=== PATIENT | male | born 1980 | race Caucasian/White ===

== ENCOUNTER → 2017-06-11 | Emergency (ER) | payer OTHER ==
[~2017-06-11] VITALS: Ht 167.6 cm; Wt 85.3 kg
== END | disposition home or self-care (01) ==
LOC: ER 09:11
DX: S91.321A Laceration with foreign body, right foot, initial encounter (principal); W10.8XXA Fall (on) (from) other stairs and steps, initial encounter; Y93.01 Activity, walking, marching and hiking; Y92.098 Other place in other non-institutional residence as the place of occurrence of the external cause; Y99.8 Other external cause status

== ENCOUNTER 2017-11-17 16:47 | Emergency (ER) | payer OTHER ==
[~2017-11-17] VITALS: Ht 167.6 cm; Wt 83.5 kg
== END 2017-11-17 20:13 | disposition home or self-care (01) ==
LOC: ER 16:47
DX: B34.9 Viral infection, unspecified (principal)